=== PATIENT | female | born 1985 | race Caucasian/White ===

== ENCOUNTER 2019-07-07 08:18 | Emergency (ER) | payer BC ==
[2019-07-07] MEDS ORDERED: NS 0.9% 1000 ML** 1,000 ML IV ONE (08:42)
--- NOTE | 2019-07-07 08:42 | ED ---
Complex/Multi-Sys Presentation - HPI Summary HPI Summary: 33 [facility] area of erythema and swelling on her right elbow since being bit by a bug several nights ago. The patient rates the pain 0/10 in severity. Symptoms aggravated by nothing. Symptoms alleviated by nothing. Patient additionally complains of dizziness prior to arrival. BP prior to arrival was 96/52. Patient denies fever, decreased food and liquid intake. Patient is 13 weeks . /A0. - History Of Current Complaint Chief Complaint: EDDizziness Time Seen by Provider: 07/07/19 08:34 Hx Obtained From: Patient Onset/Duration: Lasting Days, Still Present Timing: Constant Severity Currently: None Aggravating Factor(s): Nothing Alleviating Factor(s): Nothing Associated Signs And Symptoms: Positive: Dizziness, Other - NEG: fever, decreased food and liquid intake - Allergies/Home Medications Allergies/Adverse Reactions: Allergies Allergy/AdvReac Type Severity Reaction Status Date / Time No Known Allergies Allergy Verified 07/07/19 08:23 Home Medications: Home Medications Cetirizine* [ZyrTEC 10 MG TAB*] 10 mg PO DAILY 07/07/19 [History Confirmed 07/07] Vitamin TAB* 1 tab PO DAILY 07/07/19 [History Confirmed 07/07/19] Pyridoxine TAB* [Vitamin B6 TAB*] 50 mg PO BEDTIME 07/07/19 [History Confirmed 07/07/19] PMH/Surg Hx/FS Hx/Imm Hx Endocrine/Hematology History: Reports: Hx Anemia - STATES BORDERLINE Respiratory History: Reports: Hx Sleep Apnea - ? EVALUATED 04/24/16, HAS APPOINTMENT 05/16/16 History: Reports: Other Problems/Disorders - pyelonephritis Neurological History: Reports: Hx Migraine - USUALLY 2XMONTH, USES OTC MEDS/REST - Cancer History Hx Chemotherapy: No Hx Radiation Therapy: No - Surgical History Surgery Procedure, Year, and Place: 2014 4 WISDOM TEETH EXTRACTED, OFFICE/ [place] Hx Anesthesia Reactions: No Infectious Disease History: No Infectious Disease History: Denies: Traveled Outside the [place] in Last 30 Days - Family History Known Family History: Positive: Cardiac Disease, Hypertension, Diabetes Family History: Father wth [place], diabetes, COPD. Mother with HTN, hypercholesterolemia. Sister with breast CA - Social History Alcohol Use: Weekly Alcohol Amount: MAYBE 4 GLASSES WINE/WEEK Hx Substance Use: No Substance Use Type: Reports: None Hx Tobacco Use: No Smoking Status (MU): Never Smoked Tobacco Have You Smoked in the Last Year: No Review of Systems Negative: Fever Gastrointestinal: Negative - decreased food and liquid intake Positive: Other - an area of erythema and swelling on her right elbow Neurological: Other - dizziness All Other Systems Reviewed And Are Negative: Yes Physical Exam - Summary Physical Exam Summary: VITAL SIGNS: Reviewed. GENERAL: Patient is a well-developed and nourished FEMALE who is lying comfortable in the stretcher. Patient is not in any acute respiratory distress. HEAD AND FACE: No signs of trauma. No ecchymosis, hematomas or skull depressions. No sinus tenderness. EYES: PERRLA, EOMI x 2, No injected conjunctiva, no nystagmus. EARS: Hearing grossly intact. Ear canals and tympanic membranes are within normal limits. MOUTH: Oropharynx within normal limits. NECK: Supple, trachea is midline, no adenopathy, no JVD, no carotid bruit, no c- spine tenderness, neck with full ROM. CHEST: Symmetric, no tenderness at palpation. LUNGS: Clear to auscultation bilaterally. No wheezing or crackles. CVS: Regular rate and rhythm, S1 and S2 present, no murmurs or gallops appreciated. ABDOMEN: Soft, non-tender. No signs of distention. No rebound, no guarding, and no masses palpated. Bowel sounds are normal. EXTREMITIES: FROM in all major joints, no edema, no cyanosis or clubbing. NEURO: Alert and oriented x 3. No acute neurological deficits. Speech is normal and follows commands. SKIN: Dry and warm. Patient has an area of erythema and swelling above the right elbow with tracking sanchez Triage Information Reviewed: Yes Vital Signs On Initial Exam: Initial Vitals Temp Pulse Resp BP Pulse Ox 98.1 F 90 16 112/68 99 07/07/19 08:20 07/07/19 08:20 07/07/19 08:20 07/07/19 08:20 07/07/19 08:20 Vital Signs Reviewed: Yes Diagnostics - Vital Signs Vital Signs Temp Pulse Resp BP Pulse Ox 07/07/19 08:20 98.1 F 90 16 112/68 99 - Laboratory Result Diagrams: 07/07/19 08:53 07/07/19 08:53 Lab Statement: Any lab studies that have been ordered have been reviewed, and results considered in the medical decision making process. Re-Evaluation - Re-Evaluation First Eval Re-Evaluation Time: 09:42 Comment: patient is feeling better. updated on lab results. discussed disposition plan. patient is agreeable to discharge Complex Multi-Symp Course/Dx Assessment/Plan: 33 year old F presenting to [facility] with a chief complaint of an area of erythema and swelling on her right elbow since being bitten by a bug several nights ago. The patient rates the pain 0/10 in severity. Symptoms aggravated by nothing. Symptoms alleviated by nothing. Patient additionally complains of dizziness prior to arrival. BP prior to arrival was 96/52. Patient denies fever, decreased food and liquid intake. Patient is 13 weeks . /A0. Blood work without any significant abnormality except for a slight anemia possibly secondary to her . I believe that the patient has a slight area of cellulitis for which the patient was given IV fluids for rehydration and Keflex for the cellulitis. The patient will be discharged home with follow-up with PCP and her RN ACLS doctor. Patient denies any abdominal cramping, vaginal discharge or bleeding. - Diagnoses Provider Diagnoses: Cellulitis Discharge - Sign-Out/Discharge Documenting (check all that apply): Patient Departure - Discharge Patient Received Moderate/Deep Sedation with Procedure: No - Discharge Plan Condition: Stable Disposition: HOME Prescriptions: Cephalexin CAP* [Keflex 500 CAP*] 500 mg PO TID #30 cap Patient Education Materials: Cellulitis (ED) Forms: *Work Release Referrals: Pam Balderas MD [Primary Care Provider] - 3 Days Additional Instructions: Follow up with your primary care provider in 3 days. Return to the Emergency Department for new or worsening symptoms. - Billing Disposition and Condition Condition: STABLE Disposition: Home - Attestation Statements Document Initiated by Scribe: Yes Documenting Scribe: Heena Lake Provider For Whom Roberto is Documenting (Include Credential): Arturo Daniels MD Scribe Attestation: Heena Rose, scribed for Arturo Daniels MD on 07/07/19 at 1853. Scribe Documentation Reviewed: Yes Provider Attestation: The documentation as recorded by the scribeHeena accurately reflects the service I personally performed and the decisions made by me, Arturo Daniels MD Status of Scribe Document: Viewed
[2019-07-07 08:59] LABS: ABS Eosinophils 0.1 10^3/ul (0-0.6); ABS Lymphocytes 1.8 10^3/ul (1.0-4.8); ABS Monocytes 0.7 10^3/ul (0-0.8); ABS Neutrophils 3.7 10^3/ul (1.5-7.7); Eosinophil % 1.2 %; Hematocrit 31 % (35-47); Hemoglobin 10.6 g/dL (12.0-16.0); Lymphocyte % 29.1 %; Mean Corpuscular HGB Conc 34 g/dL (31-36); Mean Corpuscular Hemoglobin 31 pg (27-31); Mean Corpuscular Volume 90 fL (80-97); Mean Platelet Volume 6.8 fL (7.4-10.4); Nucleated Red Blood Cells % 0.1; Platelet Count 269 10^3/uL (150-450); Red Blood Count 3.46 10^6 /uL (3.70-4.87); Red Cell Distribution Width 13 % (10-15); White Blood Count 6.3 10^3/uL (3.5-10.8)
[2019-07-07 09:15] LABS: Albumin 3.9 g/dL (3.2-5.2); Albumin/Globulin Ratio 1.5 (1-3); C Reactive Protein 5.96 mg/L (<8.01); EGFR African American 202.2 (>60); EGFR Non-African American 167.1 (>60); Globulin 2.6 g/dL (2-4); Potassium 3.8 mmol/L (3.5-5.0); Total Bilirubin 0.3 mg/dL (0.2-1.0); Total Protein 6.5 g/dL (6.4-8.9)
[2019-07-07] MEDS ORDERED: Cephalexin CAP* 500 MG PO ONE (09:15)
[2019-07-07 09:16] LABS: Urine Appearance Cloudy; Urine Bilirubin Negative (Negative); Urine Blood Negative (Negative); Urine Color Yellow; Urine Glucose Negative (Negative); Urine Ketones Negative (Negative); Urine Nitrite Negative (Negative); Urine Protein Negative (Negative); Urine Specific Gravity 1.013 (1.010-1.030); Urine Urobilinogen Negative (Negative)
[2019-07-07 09:57] VITALS: BP 111/63
== END 2019-07-07 09:56 | disposition home or self-care (01) ==
LOC: ED 08:18
DX: L03.113 Cellulitis of right upper limb (principal); D64.9 Anemia, unspecified
CPT/HCPCS: 36415; 80053; 81003; 85025; 86140; 96360; 99282; A9270-GY

== ENCOUNTER 2019-12-04 14:06 | Emergency (ER) | payer BC ==
[2019-12-04 14:27] VITALS: BP 104/55
--- NOTE | 2019-12-04 14:45 | UC ---
Skin Complaint HPI - HPI Summary HPI Summary: 34 yo female presents with bug bite. She tells me that 2 days ago she noticed some itching to her right calf with a small red giles and thinks it is a bug bite. Since that time the area has gotten more red and swollen and itchy. She is currently 35weeks . She mentions that earlier in her she had a bug bite and cellulitis to her right elbow that kept spreading and she ended up in the ED. She has no calf pain, SOB, chest pain, abdominal pain, pelvic pain, vaginal bleeding or discharge. - History of Current Complaint Chief Complaint: UCSkin Time Seen by Provider: 12/04/19 14:45 Stated Complaint: RT LEG PROBLEM Hx Obtained From: Patient Onset/Duration: Gradual Onset Onset Severity: Mild Current Severity: Mild Pain Intensity: 1 Pain Scale Used: 0-10 Numeric - Allergy/Home Medications Allergies/Adverse Reactions: Allergies Allergy/AdvReac Type Severity Reaction Status Date / Time crab Allergy Severe Hives Verified 12/04/19 14:26 kiwi Allergy Swelling Verified 12/04/19 14:25 Of Face,Lips,& Throat Home Medications: Home Medications Acetaminophen/Diphenhydramine [Acetaminophen Pm Caplet] 1 tab PO ONCE PRN [History Confirmed 12/04/19] Ferrous Sulfate [Slow Fe] 1 tab PO DAILY 12/04/19 [History Confirmed 12/04/19] Magnesium Citrate 1 tab PO DAILY 12/04/19 [History Confirmed 12/04/19] PMH/Surg Hx/FS Hx/Imm Hx - Additional Past Medical History Additional PMH: None - Surgical History Surgical History: Yes Surgery Procedure, Year, and Place: 2014 4 WISDOM TEETH EXTRACTED, OFFICE/ [place]. cholecystectomy 2014 - Family History Known Family History: Positive: Cardiac Disease, Hypertension, Diabetes Family History: Father wth [place], diabetes, COPD. Mother with HTN, hypercholesterolemia. Sister with breast CA - Social History Lives: With Family Alcohol Use: Weekly Alcohol Amount: MAYBE 4 GLASSES WINE/WEEK Substance Use Type: None Smoking Status (MU): Never Smoked Tobacco Have You Smoked in the Last Year: No Review of Systems All Other Systems Reviewed And Are Negative: No Constitutional: Positive: Negative Skin: Positive: Other - bug bite Respiratory: Positive: Negative Cardiovascular: Positive: Negative Neurovascular: Positive: Negative Neurological: Positive: Negative Psychological: Positive: Negative Physical Exam - Summary Physical Exam Summary: GENERAL: NAD. WDWN. No pain distress. SKIN: RIGHT LEG: calf with 4.5cm diameter of mild erythema, induration, and warmth with central bug bite. No abscess, streaking, or open wound. NECK: Supple. Nontender. No lymphadenopathy. CHEST: No accessory muscle use. Breathing comfortably and in no distress. CV: Pulses intact. Cap refill <2seconds NEURO: Alert. PSYCH: Age appropriate behavior. Triage Information Reviewed: Yes Vital Signs: Initial Vital Signs Temp 98.3 F 12/04/19 14:17 Pulse 88 12/04/19 14:17 Resp 18 12/04/19 14:17 BP 104/55 12/04/19 14:17 Pulse Ox 99 12/04/19 14:17 Vital Signs Reviewed: Yes Course/Dx - Course Course Of Treatment: Bug bite with cellulitis to right calf. Rx for keflex. - Diagnoses Provider Diagnosis: Bug bite, Cellulitis of calf Discharge ED - Sign-Out/Discharge Documenting (check all that apply): Patient Departure All imaging exams completed and their final reports reviewed: No Studies - Discharge Plan Condition: Stable Disposition: HOME Prescriptions: Cephalexin CAP* [Keflex CAP*] 500 mg PO TID #21 cap Patient Education Materials: Cellulitis (ED), Insect Bite or Sting (ED) Referrals: Pam Balderas MD [Primary Care Provider] - Additional Instructions: If you develop a fever, shortness of breath, chest pain, new or worsening symptoms - please call your PCP or go to the ED immediately. Apply a cool compress to the area to reduce swelling and itching - Billing Disposition and Condition Condition: STABLE Disposition: Home - Attestation Statements Provider Attestation: I was available for consult. This patient was seen by the NAUN. The patient was not presented to, seen by, or examined by me. -Nicanor
[2019-12-04] MEDS ORDERED: Cephalexin CAP* 500 MG PO ONE (14:50)
== END 2019-12-04 15:24 | disposition home or self-care (01) ==
LOC: UCEAST 14:06
DX: S80.861A Insect bite (nonvenomous), right lower leg, initial encounter (principal); L03.115 Cellulitis of right lower limb; W57.XXXA Bitten or stung by nonvenomous insect and other nonvenomous arthropods, initial encounter; Y92.9 Unspecified place or not applicable; Z91.013 Allergy to seafood; Z91.018 Allergy to other foods
CPT/HCPCS: 99212; A9270-GY; G0463

== ENCOUNTER 2020-01-07 09:33 | Inpatient (IN) | payer BC ==
[2020-01-07] MEDS: Acetaminophen TAB* 325 MG PO PRN ×2 (11:17→20:19)
[2020-01-07] MEDS ORDERED: Lactated Ringers 1000 ML Bag* 1,000 ML IV ONE (11:38)
[2020-01-07] MEDS ORDERED: Buffered Lidocaine 1% SYRIN* 1 ML/SYRINGE INTRADERM ONE (11:38)
[2020-01-07] MEDS ORDERED: Penicillin G Potassium IV* 5,000,000 UNITS in NS 0.9% 100 ML* 100 ML IVPB ONE (11:38)
[2020-01-07 11:50] LABS: ABS Lymphocytes 1.8 10^3/ul (1.0-4.8); ABS Monocytes 0.6 10^3/ul (0-0.8); ABS Neutrophils 5.7 10^3/ul (1.5-7.7); Eosinophil % 0.1 %; Hematocrit 32 % (35-47); Hemoglobin 11.1 g/dL (12.0-16.0); Lymphocyte % 21.8 %; Mean Corpuscular HGB Conc 35 g/dL (31-36); Mean Corpuscular Hemoglobin 31 pg (27-31); Mean Corpuscular Volume 89 fL (80-97); Mean Platelet Volume 7.4 fL (7.4-10.4); Platelet Count 289 10^3/uL (150-450); Red Blood Count 3.57 10^6 /uL (3.70-4.87); Red Cell Distribution Width 14 % (10-15); White Blood Count 8.2 10^3/uL (3.5-10.8)
[2020-01-07] MEDS ORDERED: Lactated Ringers 1000 ML Bag* 1,000 ML IV SCH ×2 (12:00→16:00)
--- NOTE | 2020-01-07 12:03 | HP ---
General Information - Reason for Visit Contractions increasing in frequency and intensity - General Information Maternal Age: 34 Grav: 2 Para: 1 SAB: 0 IEA: 0 Estimated Due Date: 01/11/20 Determined By: LMP Maternal Blood Type and Rh: A Positive - Results this Serology/RPR Result: Non-Reactive Rubella Result: Non-Immune HBsAg Result: Negative HIV Result: Negative GBS Culture Result: Positive Past Medical History Delivery History: Hx Uncomplicated Vaginal Delivery - 10/2012 Pertinent Past Medical History: See Records - Migraine Pertinent Past Surgical History: See Records - Cholecystectomy 05/07 Pertinent Family History: See Records Family History Comment: half sister Breast Ca, BRCA gene negative PR Hodgkin's dz - Antepartal Records Antepartal Records: Reviewed, Complicated by: - IUI , rubella non-immune, GBS bacteriuria, anemia Review of Systems Constitutional: Uncomfortable CV Complaint: No Respiratory: Shortness of Breath: No Gastrointestinal: Normal Bowel Movement, Nausea Genitourinary: No Dysuria, No Leaking Fluid, Spotting Musculoskeletal: Back Pain, Contractions Neurological: No Visual Changes, Headache Movement: Normal Exam Allergies/Adverse Reactions: Allergies crab Allergy (Severe, Verified 01/07/20 10:43) Hives kiwi Allergy (Verified 01/07/20 10:43) Swelling Of Face,Lips,& Throat BP 123/75 T 97.1 HR 94 RR 20 O2 99 Lab Values - Entire Visit: Laboratory Tests 01/07/20 11:30 WBC 8.2 RBC 3.57 L Hgb 11.1 L Hct 32 L MCV 89 MCH 31 MCHC 35 RDW 14 Plt Count 289 MPV 7.4 Neut % (Auto) 69.9 Lymph % (Auto) 21.8 Dickey % (Auto) 7.9 Eos % (Auto) 0.1 Baso % (Auto) 0.3 Absolute Neuts (auto) 5.7 Absolute Lymphs (auto) 1.8 Absolute Monos (auto) 0.6 Absolute Eos (auto) 0.0 Absolute Basos (auto) 0.0 Absolute Nucleated RBC 0.0 Nucleated RBC % 0.0 - Measurements Height: 5 ft 7.5 in Weight: 180 lb Weight in lbs: 180.741367 Body Mass Index (BMI): 27.8 Pre- Weight: 141 lb Weight Gained This : 39 lbs and 0 ozs - Exam Breast: Breast Exam Deferred CVA: No CVA Tenderness Extremities: No Edema Heart: Normal Rhythm/Heart Sounds HEENT: No Significant Findings Lungs: Clear Bilaterally Rectal: Rectal Exam Deferred Reflexes: - - no elicited, no clonus Thyroid: - - WNL @ entry to AP care - Abdominal Exam Abdomen Exam: Non-Tender, Fundal Height Consistent with Dates - Ultrasound/Biophysical Profile Ultrasound Status: Not Done Targeted Exam Findings Estimated Weight: 8lb Cervical Exam: 5cm Effacement: 90% Station: 0 Presenting Part: Vertex Membrane Status: Intact Bleeding/Discharge: None EFM Findings - External Monitor Findings Baseline Heart Rate: 130 External Monitor Findings: Accelerations Present, No Pattern of Variable or Late Decelerations, Variability Moderate Contractions: Regular, Moderate, 45-90 Seconds Contraction Frequency: q 2-3 Assessment/Plan - Assessment IUP @ 39+3 weeks gestation in active labor. Intact membranes. No evidence acidemia - Obstetrical Risk Factors Obstetrical Risk Factors: GBS Positive - Plan Plan: Admit - Anticipate Vaginal Delivery Plan Comment: Admit to L&D. Patient desires labor epidural; will initiate IV, start GBS prophylaxis and fluids then page anesthesia. Anticipate SVB. - Date/Time of Admission Date of Admission: 01/07/20 Time of Admission: 11:39
[2020-01-07 12:11] LABS: Urine Benzodiazepine Screen None Detected (None Detect); Urine Opiates Screen None Detected (None Detect)
--- NOTE | 2020-01-07 14:09 | PN ---
Progress Note - Progress Note Date of Service: 01/07/20 Note: S: Feels contractions are stronger. Considering epidural vs tub but would like VE. O: VE 5-6cm/100/0 FHT 130 via doppler UCs q 2-4 min VSS A: IUP @ 39+3 weeks gestation in active labor Intact membranes Doubt acidemia P: Will try tub for a while then will likely opt for epidural
[2020-01-07] MEDS ORDERED: OBEPIDURAL* 0 ML EPIDURAL ONE (14:25)
[2020-01-07] MEDS ORDERED: Oxytocin in LR* 0 UNITS/0 ML BAG IVPB ONE (14:43)
[2020-01-07] MEDS ORDERED: Glycerin ADULT SUPP PR PRN (15:26)
--- NOTE | 2020-01-07 15:43 | PROCNOTE ---
[facility] OB: Delivery Note - Delivery A Date of : 01/07/20 Time of : 14:42 Sex: Male Weight at : 8 lb 7 oz Score 1 Minute: 9 Score 5 Minutes: 9 Gestational Age in Weeks and Days at Delivery: 39 Weeks and 3 Days Delivery Method: Spontaneous Vaginal Labor: Spontaneous Amniotic Fluid: Clear Estimated Blood Loss: 300 Anesthesia/Analgesia: None - Nursery Level of Nursery: Regular/Bedside - Perineum Perineal Injury: 2nd Degree Perineal Injury Comment: Shallow 2nd degree, repaired 3-0 Rapide Perineal Repair: By Delivering Practioner - Events Delivery Events of Note: Precipitous Delivery - Additional Delivery Notes Additional Delivery Notes: Patient admitted with irregular labor pattern, progressed quickly after SROM. Had wanted epidural but was feeling urge to push shortly after anesthesia paged and baby when anesthesiologist arrived. Length of active labor 48", pushed 12 min. Baby born OA to JUNE, shoulders following smoothly with maternal efforts. Delivered to maternal abdomen with spontaneous cry with bulb syringe to clear secretions. Cord doubly clamped and cut by FOB once pulsations ceased. Placenta delivered with gentle cord traction @ 1448. Fundus firm to massage. Baby at breast to initiate . Name taqueria.
[2020-01-07] MEDS: Ibuprofen TAB* 600 MG PO PRN (15:56)
[2020-01-07] MEDS ORDERED: Penicillin G Potassium IV* 3,000,000 UNITS in NS 0.9% 100 ML* 100 ML IVPB SCH (16:00)
[2020-01-07] MEDS ORDERED: Lidocaine 1% INJ* 10 MG/ML 30 ML SDV ONE (16:53)
[2020-01-07] MEDS: Witch Hazel PAD* JAR TOPICAL PRN (20:09)
[2020-01-07] MEDS: Dibucaine 1% 28.35 GM TUBE PR PRN (20:09)
[2020-01-07] MEDS: Docusate CAP* 100 MG PO SCH (20:19)
[2020-01-08] MEDS: Ibuprofen TAB* 600 MG PO PRN ×4 (01:18→21:19)
[2020-01-08] MEDS: Acetaminophen TAB* 325 MG PO PRN (02:33)
[2020-01-08 05:55] LABS: ABS Lymphocytes 2.4 10^3/ul (1.0-4.8); ABS Monocytes 0.9 10^3/ul (0-0.8); ABS Neutrophils 7.1 10^3/ul (1.5-7.7); Eosinophil % 0.2 %; Hematocrit 27 % (35-47); Hemoglobin 9.4 g/dL (12.0-16.0); Lymphocyte % 23.5 %; Mean Corpuscular HGB Conc 35 g/dL (31-36); Mean Corpuscular Hemoglobin 31 pg (27-31); Mean Corpuscular Volume 89 fL (80-97); Mean Platelet Volume 6.8 fL (7.4-10.4); Platelet Count 272 10^3/uL (150-450); Red Blood Count 3.01 10^6 /uL (3.70-4.87); Red Cell Distribution Width 13 % (10-15); White Blood Count 10.4 10^3/uL (3.5-10.8)
[2020-01-08] MEDS: Ferrous Gluconate TAB* 324 MG TAB PO SCH ×2 (08:09→20:45)
[2020-01-08] MEDS: Docusate CAP* 100 MG PO SCH ×3 (08:09→20:45)
[2020-01-08] MEDS: Dibucaine 1% 28.35 GM TUBE PR PRN ×2 (08:09→20:49)
[2020-01-08] MEDS ORDERED: Measles, Mumps,Rubella VACC* 0.5 ML/VIAL SUBCUT ONE (09:00)
[2020-01-08] MEDS: Witch Hazel PAD* JAR TOPICAL PRN (20:49)
[2020-01-09] MEDS: Ibuprofen TAB* 600 MG PO PRN ×2 (05:02→12:02)
[2020-01-09] MEDS: Docusate CAP* 100 MG PO SCH (08:06)
[2020-01-09] MEDS: Ferrous Gluconate TAB* 324 MG TAB PO SCH (08:06)
[2020-01-09 11:58] VITALS: BP 121/64
[2020-01-09] MEDS: Dibucaine 1% 28.35 GM TUBE PR PRN (12:03)
== END 2020-01-09 14:05 | disposition home or self-care (01) | DRG 560 ==
LOC: MCHOBOUT 09:33 → MCHOB 11:39
PROVIDERS: ADMIT Midwife; ATTEND Midwife
PROC: 10E0XZZ Delivery of Products of Conception, External Approach (ICD-10-PCS; principal; 2020-01-07)
PROC: 4A1HXCZ Monitoring of Products of Conception, Cardiac Rate, External Approach (ICD-10-PCS; 2020-01-07)
PROC: 0KQM0ZZ Repair Perineum Muscle, Open Approach (ICD-10-PCS; 2020-01-07)
DX: O99.824 Streptococcus B carrier state complicating childbirth (principal); Z37.0 Single live birth; O99.03 Anemia complicating the puerperium; O70.1 Second degree perineal laceration during delivery; O62.3 Precipitate labor; Z3A.39 39 weeks gestation of pregnancy; Z91.013 Allergy to seafood; Z91.018 Allergy to other foods
CPT/HCPCS: 36415; 80307; 85025; 86850; 86900; 86901; 90707; A9270-GY; G0480; J2540